=== PATIENT | male | born 1950 | race Caucasian/White ===

== ENCOUNTER → 2017-08-27 | Outpatient (CLI) | payer MEDICARE, OTHER ==
[~2017-08-27] MED LIST: ALEVE220 MG PO; ASPIRIN EC325 M1 PO; CLONIDINE 0.1M0.1 MG TD; CLONIDINE HYDR0.1 MG PO; CRESTOR10 MG PO; CYMBALTA60 MG PO; FIBER CHOICE PL1 CTB PO; JANUMET XR 10001 TE1 PO; LOTREL 2.5 MG-11 CAP PO; MULTI VITAMINS1 TA1 PO; NASONEX0.05 MG/AC; NATURAL POTASS595 MG PO; PROTONIX40 MG PO; STOOL SOFTENER250 M1 PO; TOPROL XL200 MG PO; ZYRTEC 10MG TAB10 MG PO
--- NOTE | 2017-08-27 14:51 | RADIOLOGY REPORT PS360 ---
EXAM: CERVICAL SPINE 4 OR 5 VIEWS HISTORY: Neck pain NECK DISORDER ORDERING PHYSICIAN: Torres Canas MD PATIENT AGE: 66 years COMPARISON: None FINDINGS: There is minimal anterolisthesis of C3 on C4 of 2 mm. Mild degenerative disc disease C4-C5. Mild facet hypertrophic change is present at C3-C4 C4-C5 and C5-C6. There is mild foraminal narrowing on the left 3 C4 and minimal foraminal narrowing on the right at C4-C5 No fracture or dislocation. No lytic or blastic change. Carotid artery calcifications are present. IMPRESSION: 1. Mild cervical spondylosis as detailed above. 2. Carotid artery disease.
== END ==
LOC: RAD 12:12
DX: M53.82 Other specified dorsopathies, cervical region (principal)

== ENCOUNTER → 2017-10-28 | Outpatient (CLI) | payer MEDICARE, OTHER ==
[~2017-10-28] MED LIST changes: +ADULT LOW DOSE81 MG PO; +JARDIANCE25 MG PO; +MULTI-VITAMINS1 TAB PO
[2017-10-28 14:35] LABS: LYMPH # 2.3 K/mm3 (0.7-4.5)
[2017-10-28 14:50] LABS: BUN 19 mg/dL (7-18)
[2017-10-28 14:58] LABS: HEMOGLOBIN 18.4 g/dL (14.1-18.0)
[2017-10-28 14:59] LABS: GFR (ESTIMATED) 50 ML/MIN (>60)
== END ==
LOC: CARL-LAB 07:30
PROVIDERS: Emergency Medicine
DX: E11.9 Type 2 diabetes mellitus without complications (principal); I10 Essential (primary) hypertension; R07.2 Precordial pain; E78.00 Pure hypercholesterolemia, unspecified; G47.10 Hypersomnia, unspecified; F17.200 Nicotine dependence, unspecified, uncomplicated